=== PATIENT | female | born 1960 | race Caucasian/White ===

== ENCOUNTER → 2020-09-17 | Outpatient (CLI) | payer BC, MEDICARE ==
--- NOTE | 2020-09-22 03:09 | ECWPNPC ---
PATIENT NAME: BRONSON SANTOS : 1960 GENDER: FEMALE VISIT DATE: 09/17/2020 DISCHARGE DATE: 09/17/20 1400 VISIT LOCKED DATE TIME: PHYSICIAN: EMI HELLER PHYSICIAN PAGER NO: ACTIVE RESOURCE: EMI HELLER REASON FOR APPOINTMENT 1. CHRONIC PAIN HISTORY OF PRESENT ILLNESS DEPRESSION SCREENING: PHQ-2 (2015 EDITION) LITTLE INTEREST OR PLEASURE IN DOING THINGS?NOT AT ALL FEELING DOWN, DEPRESSED, OR HOPELESS?NOT AT ALL TOTAL SCORE0 GENERAL: 60-YEAR-OLD FEMALE REFERRED BY FOREIGN EXCHANGE DEALER AT [facility] TO EVALUATE FOR CHRONIC NECK AND LEFT SHOULDER PAIN. PATIENT REPORTS LONG HISTORY OF CHRONIC PAIN. STATES SHE'S BEEN ON CHRONIC NARCOTIC PAIN MEDICATION FOR SEVERAL YEARS. CURRENTLY HAVING CHRONIC NARCOTIC PAIN MEDICATION AND SOMA TAPERED DOWN TO A MORE REASONABLE DOSAGE BY PRIMARY CARE. STATES SHE HAD AN ALLERGIC REACTION TO STEROID INJECTION SEVERAL YEARS AGO AND IS NOT INTERESTED IN INJECTION THERAPY. SHE FEELS SHE WAS SENT HERE FOR US TO TAKE OVER MEDICATION MANAGEMENT. INFORMED PATIENT THAT I WOULD BE IN AGREEMENT TO TALK WITH PRIMARY CARE PROVIDER IF THEY NEED OUR ASSISTANCE WITH MEDICATION RECOMMENDATIONS FOR CHRONIC PAIN. PATIENT HAS MULTIPLE COMORBIDITIES TO INCLUDE MORBID OBESITY. LIVES WITH HER WHO ALSO IS HERE TODAY FOR CONSULT AND MEDICATION MANAGEMENT FOR CHRONIC PAIN.- - -. FALL RISK SCREENING: SCREENING : NO FALLS REPORTED IN THE LAST YEAR , : NO FALLS REPORTED IN THE LAST YEAR. PAIN SCREENING: PATIENT HAS A COMPLAINT OF ACUTE OR CHRONIC PAIN :YES LOCATION OF PAIN:MID BACK, LOW BACK INTENSITY OF PAIN (SCALE OF 1 TO 10):8 WHAT DOES YOUR PAIN FEEL LIKE:ACHING, BURNING, SHARP, STABBING, THROBBING, SHOOTING DURATION:CONTINOUS, CONSTANT, ALL DAY PAIN IS INCREASED BY:ACTIVITIES, PROLONGED STANDING PAIN IS DECREASED BY:USE OF PAIN MEDICATIONS NURSING NOTE: - - -. PAIN CENTER INTAKE QUESTIONS: DO YOU HAVE A HISTORY OF MRSA? :NO DO YOU TAKE A BLOOD THINNERS? :NO DO YOU HAVE ANY BLEEDING DISORDERS? :NO ANY NEW NUMBNESS OR WEAKNESS IN YOUR LEGS OR ARMS? :NO ANY PACEMAKER,DEFIBRILLATOR, OR DORSAL COLUMN STIMULATOR? :NO DO YOU HAVE ANY RASHES OR OPEN SORES? :NO ARE YOU ALLERGIC TO IV DYE? :NO ARE YOU DIABETIC? :NO ANY NEW PROBLEMS WITH YOUR MEDICATIONS? :NO HAVE YOU RECEIVED A VACCINE IN THE PAST 30 DAYS? :NO DO YOU PLAN TO RECEIVE A VACCINE IN THE NEXT 21 DAYS? :NO DO YOU NEED ANY PRESCRIPTION? :NO DO YOU TAKE ANY IMMUNOSUPPRESSIVE MEDICATIONS? :NO CURRENT MEDICATIONS TAKING VITAMIN B12 100 MCG TABLET DIRECTED ORALLY TAKING MULTIVITAMINS - CAPSULE DIRECTED ORALLY TAKING PROBIOTIC - CAPSULE DIRECTED ORALLY TAKING VITAMIN C 500 MG CAPSULE DIRECTED ORALLY TAKING CINNAMON 500 MG TABLET DIRECTED ORALLY TAKING APPLE CIDER VINEGAR 600 MG CAPSULE DIRECTED ORALLY TAKING METFORMIN HCL ER 500 MG TABLET EXTENDED RELEASE 24 HOUR 1 TABLET WITH EVENING MEAL ORALLY ONCE A DAY TAKING LASIX 20 MG TABLET 1 TABLET ORALLY ONCE A DAY TAKING LORCET HD 10-325MG EVERY 6 HRS TAKING VALIUM 5 MG TABLET 1 TABLET NEEDED ORALLY ONCE A DAY, NOTES: MUSCLE SPASM NOT-TAKING ERGOCALCIFEROL 1.25 MG (69818 UT) CAPSULE 1 CAPSULE ORALLY NOT-TAKING MAGNESIUM 500 MG TABLET 1 TABLET WITH A MEAL ORALLY ONCE A DAY MEDICATION LIST REVIEWED AND RECONCILED WITH THE PATIENT PAST MEDICAL HISTORY CERVICAL DISC HERNIATION LEFT HIP PAIN ESOPHAGEAL REFLUX HEADACHE SPASM OF MUSCULE VITAMIN D DEFICIENCY DYSLIPIDEMIA RIGHT WRIST FRACTURE 2019 BACK PAIN MORBID OBESITY ALLERGIES CYMBALTA: CHEST PAIN - SIDE EFFECTS TAPE: RASH - SIDE EFFECTS NAPROSYN: GI UPSET AND NSAIDS - ALLERGY GABAPENTIN: PALPITATIONS, RASH - SIDE EFFECTS LYRICA: PALPITATION, RASH - SIDE EFFECTS SURGICAL HISTORY APPENDECTOMY CHOLECYSTECTOMY TONSILECTOMY HYSTERCTOMY, PARTIAL LEFT KNEE REPLACEMENT BOTH HIP REPLACE FAMILY HISTORY FATHER: MOTHER: ALIVE SON(S): 32 YRS DAUGHTER(S): ALIVE 34 YRS 2 BROTHER(S) . 2 SON(S) , 1 DAUGHTER(S) - HEALTHY. FATHER DIAGNOSED WITH HEART DISEASE , MOTHER CANCER. SOCIAL HISTORY GENERAL: TOBACCO USE ARE YOU A:FORMER SMOKER HOW LONG HAS IT BEEN SINCE YOU LAST SMOKED?> 10 YEARS LATEX QUESTIONNAIRE LATEX ALLERGY : HAVE YOU EVER DEVELOPED ANY TYPE OF REACTION AFTER HANDLING LATEX PRODUCTS SUCH RUBBER GLOVES, CONDOMS, DIAPHRAGMS, BALLOONS, SOCKS, OR UNDERWEAR?YES - PLEASE INDICATE :OTHER (DOCUMENT IN NOTES) BANDAIDS LATEX ALLERGY : HAVE YOU EVER DEVELOPED ANY TYPE OF REACTION DURING OR AFTER DENTAL APPOINTMENT, VAGINAL/RECTAL EXAMINATION, SURGICAL PROCEDURE, OR ANY OTHER EXPOSURE?NO LATEX RISK : HAVE YOU EVER HAD ANY DIFFICULTY BREATHING OR HIVES AFTER EATING OR HANDLING ANY FRUITS, OR VEGETABLES; SUCH KIWI, BANANAS, STONE FRUITS, OR CHESTNUTSNO LATEX RISK : DO YOU HAVE A PREVIOUS PERSONAL HISTORY OF MORE THAN NINE SURGERIES, SPINA BIFIDA, OR REPEATED CATHERIZATIONS? NO LATEX RISK : ARE YOU FREQUENTLY EXPOSED TO LATEX PRODUCTS IN YOUR OCCUPATION?NO DATE ASKED : 09/17/2020 ALCOHOL USE: YES. RECREATIONAL DRUG USE DRUG USE?NO LANGUAGE LANGUAGES SPOKEN:[place]EN[place] LEARNING BARRIERS / SPECIAL NEEDS CHANGE FROM LAST VISIT?YES BARRIERS TO LEARNING?NO HEARING IMPAIRED?NO VISION IMPAIRED?YES :CORRECTIVE LENSES COGNITIVELY IMPAIRED?NO READINESS TO LEARN?YES LEARNING PREFERENCES?NO LEARNING CAPABILITIES PRESENT?YES EMOTIONAL BARRIERS?NO SPECIAL DEVICES?YES :CANE, WALKER NEEDED FLIGHT OPERATIONS COORDINATOR NEEDED?NO DOMESTIC VIOLENCE DO YOU FEEL SAFE IN YOUR ENVIRONMENT?YES HOSPITALIZATION/MAJOR DIAGNOSTIC PROCEDURE SEE ABOVE REVIEW OF SYSTEMS CONSTITUTIONAL: ANY RECENT FEVER NO . CHILLS NO . WEIGHT CHANGE OF UNKNOWN REASONS NO . GASTROENTEROLOGY: NEW UNEXPLAINABLE CHANGES IN BOWEL CONTROL NO . CONSTIPATION NO . GENITOURINARY: ANY NEW CHANGE IN BLADDER CONTROL? NO . NEUROLOGY: NEW ONSET DIZZINESS OR NEUROLOGICAL CHANGES NOT MENTIONED NO . NEW NUMBNESS OR PAIN PATTERNS NOT MENTIONED AND PERTINENT TO TODAY'S VISIT NO . CARDIOLOGY: NEW CHEST PRESSURE NO . PATIENT DENIES NO . RESPIRATORY: UNEXPLAINABLE COUGH NO . NEW SHORTNESS OF BREATH NO . VITAL SIGNS WT 373.6 LBS, HT 70 IN, BMI 53.60 INDEX, BP 148/85 MM HG, HR 98 /MIN, RR 18 /MIN, TEMP 95.5 F, OXYGEN SAT % 95%, SAFE IN ENV? (Y/N) YES, NA INITIALS MS 13:23T.COLIN MERCEDES. EXAMINATION GENERAL EXAMINATION: GENERALNO ACUTE DISTRESS, ALERT,MORBIDLY OBESE. PSYCHAPPROPRIATE MOOD AND AFFECT . FACE:UNREMARKABLE. NECK:NO LYMPHADENOPATHY, SUPPLE. LUNGS:CLEAR TO AUSCULTATION BILATERALLY, NO WHEEZES, RHONCHI, RALES. HEART:NO MURMURS, REGULAR RATE AND RHYTHM. MUSCULOSKELETAL:SLIGHT WEAKNESS NOTED OVER LEFT ARM COMPARED TO RIGHT. CERVICAL:TENDERNESS OVER CERVICAL SPINE AND CERVICAL PARASPINALS . EXTREMITIES:RANGE OF JOINT MOTION LIMITED LEFT ARM TO APPROXIMATELY 45 ABDUCTION . ASSESSMENTS CERVICALGIA - M54.2 (PRIMARY) TREATMENT CERVICALGIA NOTES: RECOMMEND PRIMARY CARE PROVIDER CONTACT US IF THEY WOULD LIKE TO CONSULT WITH US IN REGARDS TO MEDICATION MANAGEMENT FOR CHRONIC PAIN. DISPOSITION & COMMUNICATION FOLLOW UP NO FOLLOW-UP NECESSARY ELECTRONICALLY SIGNED BY IRMA DUMONT ON 09/21/2020 AT 03:41 PM EDT DISCLAIMER : THIS IS A VISIT SUMMARY EXTRACTED FROM THE [employer] CHART. IT IS NOT A COPY OF THE [employer] PROGRESS NOTE. FABIOLA
== END ==
LOC: M PAIN 13:00
PROVIDERS: ATTEND Nurse Practitioner Family
DX: M54.2 Cervicalgia (principal); G89.29 Other chronic pain; Z96.652 Presence of left artificial knee joint; Z87.891 Personal history of nicotine dependence; Z88.1 Allergy status to other antibiotic agents; Z88.6 Allergy status to analgesic agent; Z88.8 Allergy status to other drugs, medicaments and biological substances; Z91.09 Other allergy status, other than to drugs and biological substances; E66.01 Morbid (severe) obesity due to excess calories; Z68.43 Body mass index [BMI] 50.0-59.9, adult; Z79.899 Other long term (current) drug therapy